=== PATIENT | female | born 1995 | race Caucasian/White ===

== ENCOUNTER 2020-09-23 16:35 | Outpatient (REF) | payer OTHER, SELFPAY ==
--- NOTE | 2020-09-23 15:30 | PAPFT_PTH ---
PATIENT: Tali Mathew LOC: [facility] [place] U#:[id number] AGE/SX: 25/F ROOM: RE09/23/[address]: Ramone Kinney : 1995 BED: DIS: 09/23/2020 SPEC #: [id number] RECD: 09/24/20 12:53 STATUS: PRAVEEN REQ #: [id number] ANITA: 09/23/20 15:[address]: Ramone Kinney DEPT: [facility] Cytology RECD BY: Kalyani Beaulieu Tissues: 1 - CX/ENDOCX FOR PAP SMEARS Procedures: PAP THIN PREP/[facility] Screening Comments: [id number]
== END 2020-09-23 16:36 | disposition home or self-care (01) ==
LOC: NCHCN 16:35
PROVIDERS: PCP Family Medicine; Visit Provider Family Medicine
DX: Z12.4 Encounter for screening for malignant neoplasm of cervix (principal); Z00.00 Encounter for general adult medical examination without abnormal findings
CPT/HCPCS: 88142

== ENCOUNTER 2021-12-07 18:50 | Outpatient (REF) | payer BC, SELFPAY ==
[2021-12-09 11:09] LABS: COVID-19 RT-PCR UVMMC Result Negative (Negative)
== END 2021-12-07 18:51 | disposition home or self-care (01) ==
LOC: NCHCN 18:50
PROVIDERS: PCP Family Medicine; Visit Provider Nurse Practitioner Family
DX: Z20.822 Contact with and (suspected) exposure to COVID-19 (principal); J06.9 Acute upper respiratory infection, unspecified
CPT/HCPCS: U0003

== ENCOUNTER 2023-10-18 16:24 | Outpatient (REF) | payer BC, SELFPAY ==
--- NOTE | 2023-10-18 10:05 | PAPFT_PTH ---
PATIENT: Tali Mathew LOC: NCN #:[id number] AGE/SX: 28/F ROOM: RE10/18/[address]: Ramone Kinney : 1995 BED: DIS: 10/18/2023 SPEC #: [id number] RECD: 10/18/23 17:20 STATUS: PRAVEEN REQ #: [id number] ANITA: 10/18/23 10:[address]: Ramone Kinney DEPT: [facility] Cytology RECD BY: Kalyani Beaulieu Tissues: 1 - CX/ENDOCX FOR PAP SMEARS Procedures: PAP THIN PREP/[facility] Screening Comments: [id number]
== END 2023-10-18 16:25 | disposition home or self-care (01) ==
LOC: NCHCN 16:24
PROVIDERS: PCP Family Medicine; Visit Provider Family Medicine
DX: Z12.4 Encounter for screening for malignant neoplasm of cervix (principal)
CPT/HCPCS: 88142

== ENCOUNTER 2023-12-25 16:37 | Outpatient (REF) | payer BC, SELFPAY ==
[2023-12-25 16:05] LABS: TSH (W/Ref FT4) 0.54 uIU/mL (0.36-3.74)
== END 2023-12-25 16:38 | disposition home or self-care (01) ==
LOC: NCHCN 16:37
PROVIDERS: PCP Family Medicine; Visit Provider Family Medicine
DX: E66.9 Obesity, unspecified (principal)
CPT/HCPCS: 84443